=== PATIENT | female | born 1940 | race Caucasian/White ===

== ENCOUNTER 2017-03-17 15:05 | Emergency (ER) | payer MEDICARE, OTHER ==
[2017-03-17] MEDS ORDERED: predniSONE 20 MG TABLET PO STA (15:15)
--- NOTE | 2017-03-17 15:18 | ED Physician Documentation ---
PD HPI SKIN - Stated complaint Stated Complaint: BEE STING - Chief complaint Chief Complaint: Allergic Rx - History obtained from History obtained from: Patient - History of Present Illness Timing - onset: Other (76-year-old woman with history of anaphylaxis to bee stings, she had multiple hornet stings at 1230 and did develop a diffuse rash but without throat swelling or shortness of breath. She self-administered her EpiPen and the rash abated. She still has numerous areas of burning pain where she was stung, mostly on the scalp, forehead, and the dorsa of both hands.) Review of Systems Constitutional: denies: Fever, Chills Cardiac: reports: Reviewed and negative Respiratory: reports: Reviewed and negative PD PAST MEDICAL HISTORY - Past Medical History Past Medical History: Yes Other Past Medical History: chronic back pain - Past Surgical History Past Surgical History: No - Present Medications Home Medications: Ambulatory Orders Medication Instructions Recorded Confirmed Celecoxib [CeleBREX] 300 mg PO DAILY 03/17/17 03/17/17 Epinephrine 0.3 mg IJ ONCE PRN #2 auto.injct 03/17/17 HYDROcod/ACETAM 5/325 [[place] 5/325] 1 - 2 ea PO Q6H PRN #10 tablet 03/17/17 predniSONE [Deltasone] 60 mg PO DAILY 5 Days tablet 03/17/17 - Allergies Allergies/Adverse Reactions: Allergies Allergy/AdvReac Type Severity Reaction Status Date / Time Tetracyclines Allergy Respiratory Verified 03/17/17 15:09 - Social History Does the pt smoke?: No Smoking Status: Never smoker Does the pt drink ETOH?: Yes Does the pt have substance abuse?: No - Immunizations Immunizations are current?: Yes PD ED PE NORMAL - Vitals Vital signs reviewed: Yes - General General: Alert and oriented X 3, No acute distress - HEENT HEENT: PERRL, EOMI, Pharynx benign - Neck Neck: Supple, no meningeal sign, No bony TTP - Cardiac Cardiac: RRR, No murmur - Respiratory Respiratory: No respiratory distress, Clear bilaterally - Derm Derm: Other (No diffuse rash, she has slightly red and swollen areas on the forehead in the dorsa of both hands.) - Neuro Neuro: Alert and oriented X 3, Normal speech - Psych Psych: Normal mood, Normal affect Results - Vitals Vitals: Vital Signs - 24 hr 03/17/17 03/17/17 03/17/17 15:07 15:43 16:49 Temperature 36.5 C 36.7 C Heart Rate 127 H 86 85 Respiratory 18 12 14 Rate Blood Pressure 176/103 H 154/92 H 170/94 H O2 Saturation 98 96 98 Oxygen O2 Source Room air PD MEDICAL DECISION MAKING - ED course ED course: 76-year-old woman with bee sting anaphylaxis, status post home EpiPen. On arrival it has been almost 3 hours since the incident and she is showing no current evidence of anaphylaxis. We will observe her in the emergency department and administer steroids. She was observed until 4 hours after the EpiPen administration, she continued to have improvement in her symptoms and the appearance of her redness without evidence of recurrent anaphylaxis. Departure - Departure Disposition: 01 Home, Self Care Clinical Impression: Bee sting-induced anaphylaxis Qualifiers: Encounter type: initial encounter Injury intent: accidental or unintentional Qualified Code(s): T63.441A - Toxic effect of venom of bees, accidental ( unintentional), initial encounter Condition: Good Record reviewed to determine appropriate education?: Yes Instructions: ED Bite Sting Insect Gen Allergic React Prescriptions: Epinephrine 0.3 mg IJ ONCE PRN #2 auto.injct PRN Reason: Allergy Symptoms HYDROcod/ACETAM 5/325 [[place] 5/325] 1 - 2 ea PO Q6H PRN #10 tablet PRN Reason: Pain predniSONE [Deltasone] 60 mg PO DAILY 5 Days tablet Comments: Call your doctor to arrange a follow-up appointment, make the next available appointment. In the interim, return anytime if worse or if new symptoms develop. Your blood pressure was elevated today on check into the emergency department. This does not mean that you have hypertension, it is a common phenomenon to come to the emergency department and have elevated blood pressure. I recommend that she see your primary care physician within the week to have it rechecked when you are feeling better. Discharge Date/Time: 03/17/17 16:53
[2017-03-17] MEDS ORDERED: predniSONE 20 MG TABLET ONE (15:25)
[2017-03-17] MEDS ORDERED: HYDROcod/ACETAM 5/325 MG TABLET PO STA (16:03)
[2017-03-17] MEDS ORDERED: HYDROcod/ACETAM 5/325 MG TABLET ONE (16:12)
[2017-03-17 16:52] VITALS: BP 170/94
== END 2017-03-17 16:53 | disposition home or self-care (01) ==
LOC: ED 15:05
DX: T63.441A Toxic effect of venom of bees, accidental (unintentional), initial encounter (principal); R21 Rash and other nonspecific skin eruption
CPT/HCPCS: 99283; A9270; J7512